=== PATIENT | male | born 1985 | race Caucasian/White ===

== ENCOUNTER 2018-11-16 13:06 | Emergency (ER) | payer SELFPAY ==
[~2018-11-16] VITALS: Ht 172.7 cm; Wt 92.3 kg
[2018-11-16 13:28] VITALS: BP 137/88
== END 2018-11-16 14:27 | disposition home or self-care (01) ==
LOC: ED 14:20
DX: J02.0 Streptococcal pharyngitis (principal); Z72.9 Problem related to lifestyle, unspecified
CPT/HCPCS: 87880; 99283